=== PATIENT | female | born 1930 ===

== ENCOUNTER 2018-01-05 00:57 | Inpatient (IN) | payer MEDICARE, OTHER ==
--- NOTE | 2018-01-05 01:44 | ED PDOC ---
Arrival/HPI - General Chief Complaint: Trauma Time Seen by Provider: 01/05/18 01:08 Historian: Patient - History of Present Illness Narrative History of Present Illness (Text): 01/05/18 01:40 87 year old female, whose past medical history includes dementia, presents to the Emergency department accompanied by daughter s/p mechanical fall coming out of the bathroom. Patient tripped and fell backwards hitting her head and neck on the floor. Patient also reports she hurt her right shoulder. Patient lives alone, but her daughter lives across the street and called 911. Patient denies any loss of consciousness, fevers, chills, chest pain, shortness of breath, abdominal pain, nausea, vomiting, diarrhea, back pain, neck pain, urinary symptoms, headache, dizziness, or any other complaint. PMD: Dr. Milner Time/Duration: Prior to Arrival Symptom Onset: Sudden Symptom Course: Unchanged Activities at Onset: Light Context: Tripped Past Medical History - Provider Review Nursing Documentation Reviewed: Yes - Infectious Disease Hx of Infectious Diseases: None - Cardiac Hx Hypertension: Yes - Endocrine/Metabolic Hx Diabetes Mellitus Type 2: Yes - Psychiatric Hx Substance Use: No - Anesthesia Hx Anesthesia: No Family/Social History - Physician Review Nursing Documentation Reviewed: Yes Family/Social History: No Known Family HX Smoking Status: Smoker Currrent Status Unknown Hx Alcohol Use: No Hx Substance Use: No Allergies/Home Meds Allergies/Adverse Reactions: Allergies No Known Allergies Allergy (Verified 01/05/18 01:43) Review of Systems - Physician Review All systems were reviewed & negative as marked: Yes - Review of Systems Constitutional: absent: Fevers, Other (Chills) Respiratory: absent: SOB Cardiovascular: absent: Chest Pain Gastrointestinal: absent: Abdominal Pain, Diarrhea, Nausea, Vomiting Genitourinary Female: absent: Dysuria, Frequency, Hematuria Musculoskeletal: Other (Right shoulder pain ). absent: Back Pain, Neck Pain Neurological: absent: Headache, Dizziness, Other (LOC ) Physical Exam Vital Signs Reviewed: Yes Vital Signs Temp Pulse Resp BP Pulse Ox 01/05/18 04:20 68 17 133/80 96 01/05/18 01:09 97.6 F 62 18 176/78 H 100 Temperature: Afebrile Blood Pressure: Hypertensive Pulse: Regular Respiratory Rate: Normal Appearance: Positive for: Well-Appearing, Non-Toxic, Comfortable Pain Distress: None Mental Status: Positive for: Alert and Oriented X 3 - Systems Exam Head: Present: Atraumatic, Normocephalic Pupils: Present: PERRL Extroacular Muscles: Present: EOMI Conjunctiva: Present: Normal Mouth: Present: Moist Mucous Membranes Neck: Present: Normal Range of Motion Respiratory/Chest: Present: Clear to Auscultation, Good Air Exchange. No: Respiratory Distress, Accessory Muscle Use Cardiovascular: Present: Regular Rate and Rhythm, Normal S1, S2. No: Murmurs Abdomen: No: Tenderness, Distention, Peritoneal Signs Back: Present: Normal Inspection Upper Extremity: Present: Other (Limited ROM to the right shoulder). No: Cyanosis, Edema, Tenderness, Deformity Lower Extremity: Present: Normal Inspection. No: Edema Neurological: Present: GCS=15, CN II-XII Intact, Speech Normal Skin: Present: Warm, Dry, Normal Color. No: Rashes Psychiatric: Present: Alert, Oriented x 3, Normal Insight, Normal Concentration Medical Decision Making ED Course and Treatment: 01/05/18 01:49 Impression: 87 year old female presents complaining of right shoulder pain s/p mechanical fall backwards. PE shows limited ROM to the right shoulder. Plan: -- CT Cervical Spine w/o contrast -- CT Head w/o Contrast -- Right Shoulder x-ray -- Elbow Right 3 view x-ray -- Chest X-ray -- Percocet, Zofran -- Immobilizer shoulder routine -- Reassess and disposition Progress Notes: 01/05/18 02:37 On reevaluation, patient's elbow on the right side is now swollen laterally along the olecranon and moves across the radial surface of the forearm 4-5cm. 01/05/18 03:00 Right shoulder x-ray Impression: As read by me, humeral head fracture Elbow Right 3-View x-ray Impression: As read by me, Possible radial head fracture. Sent to [facility] for official read. EXAM: CT Cervical Spine Without Intravenous Contrast Dictated and Authenticated by: Mark Santillan MD 01/05/2018 4:17 AM IMPRESSION: No acute findings EXAM: XR Right Elbow Complete, 3 or More Views Dictated and Authenticated by: Mark Santillan MD 01/05/2018 4:21 AM IMPRESSION: No acute findings. CXR Impression: As read by me, no acute disease. 01/05/18 04:[address] Milner who is aware and agrees with the plan. Accepts patient into her service with Dr. Gallagher for consult. - RAD Interpretation Radiology Orders: 01/05/18 01:44 CERVICAL SPINE W/O CONTRAST [CT] Stat HEAD W/O CONTRAST [CT] Stat SHOULDER RIGHT [RAD] Stat 01/05/18 02:35 ELBOW RIGHT 3 VIEWS ROUTINE [RAD] Stat 01/05/18 03:01 CXR [CHEST ONE VIEW] [RAD] Stat - Medication Orders Current Medication Orders: Discontinued Medications Ondansetron HCl (Zofran Odt) 4 mg PO STAT STA Stop: 01/05/18 02:36 Last Admin: 01/05/18 03:17 Dose: 4 mg Oxycodone/Acetaminophen (Percocet 5/325 Mg Tab) 1 tab PO STAT STA Stop: 01/05/18 02:36 Last Admin: 01/05/18 03:17 Dose: 1 tab MAR Pain Assessment Document 01/05/18 03:17 IT (Rec: 01/05/18 03:18 IT [id number]) Pain Reassessment Is this a pain reassessment? No Sleep Is patient sleeping during reassessment? No Presence of Pain Presence of Pain Yes Pain Scale Used Pain Scale Used Numeric Location Left, Right or Bilateral Right - Scribe Statement The provider has reviewed the documentation as recorded by the Magdalena Lara Provider Scribe Attestation: All medical record entries made by the Anneibe were at my direction and personally dictated by me. I have reviewed the chart and agree that the record accurately reflects my personal performance of the history, physical exam, medical decision making, and the department course for this patient. I have also personally directed, reviewed, and agree with the discharge instructions and disposition. Disposition/Present on Arrival - Present on Arrival History of DVT/PE: No History of Uncontrolled Diabetes: No Urinary Catheter: No History of Decub. Ulcer: No History Surgical Site Infection Following: None - Disposition Referrals: Geri Milner MD [Primary Care Provider] - Follow up with primary Forms: [employer] (German)
[2018-01-05] MEDS ORDERED: Oxycodone/Acetaminophen 5/325 mg Tab PO STA ×2 (02:35→09:21)
--- NOTE | 2018-01-05 08:29 | CT ---
PROCEDURE: CT HEAD WITHOUT CONTRAST. HISTORY: fall COMPARISON: None available. TECHNIQUE: Axial computed tomography images were obtained through the head/brain without intravenous contrast. Radiation dose: Total exam DLP = 845 mGy-cm. This CT exam was performed using one or more of the following dose reduction techniques: Automated exposure control, adjustment of the mA and/or kV according to patient size, and/or use of iterative reconstruction technique. FINDINGS: HEMORRHAGE: No intracranial hemorrhage. BRAIN: No mass effect or edema. Chronic microvascular changes. No acute intracranial findings VENTRICLES: Unremarkable. No hydrocephalus. CALVARIUM: Unremarkable. PARANASAL SINUSES: Unremarkable as visualized. No significant inflammatory changes. MASTOID AIR CELLS: Unremarkable as visualized. No inflammatory changes. OTHER FINDINGS: The report concurs with the preliminary [facility] report IMPRESSION: No acute findings
--- NOTE | 2018-01-05 08:32 | CT ---
PROCEDURE: CT Cervical Spine without contrast HISTORY: fall COMPARISON: None available. TECHNIQUE: Axial computed tomography images were obtained of the cervical spine without the use of intravenous contrast. Coronal and sagittal reformatted images were created and reviewed. Radiation dose: Total exam DLP = 408 mGy-cm. This CT exam was performed using one or more of the following dose reduction techniques: Automated exposure control, adjustment of the mA and/or kV according to patient size, and/or use of iterative reconstruction technique. FINDINGS: VERTEBRAE: No fracture. Normal alignment. No destructive bony lesion. DISCS/SPINAL CANAL/NEURAL FORAMINA: No significant central canal or neural foraminal stenosis. Small central calcified disc protrusion at C3-4. PARASPINAL SOFT TISSUES: Unremarkable. OTHER FINDINGS: The report concurs with the preliminary [facility] report IMPRESSION: Unremarkable CT of the cervical spine.
[2018-01-05 09:21] LABS: HEMOGLOBIN 9.7 g/dL (12.0-16.0); MEAN CORPUSCULAR HEMOGLOBIN 27.8 pg (25.0-35.0); MEAN CORPUSCULAR HGB CONC 33.1 g/dl (31.0-37.0); RBC 3.49 10^6/uL (3.5-6.1); RED CELL DISTRIBUTION WIDTH 13.7 % (11.5-14.5); WHITE BLOOD COUNT 10.4 10^3/ul (4.5-11.0)
--- NOTE | 2018-01-05 09:54 | RAD ---
PROCEDURE: CHEST RADIOGRAPH, 1 VIEW HISTORY: Pre-op COMPARISON: None available. FINDINGS: LUNGS: Clear. PLEURA: No pneumothorax or pleural fluid seen. CARDIOVASCULAR: Normal. OSSEOUS STRUCTURES: No significant abnormalities. VISUALIZED UPPER ABDOMEN: Normal. OTHER FINDINGS: None. IMPRESSION: No active disease.
--- NOTE | 2018-01-05 09:55 | RAD ---
PROCEDURE: Radiographs of the Right Shoulder HISTORY: fall COMPARISON: No prior. FINDINGS: BONES: Nondisplaced fracture right humeral neck. No other fracture identified. Possible comminution. JOINTS: Normal. Glenohumeral and acromioclavicular joints preserved. No osteoarthritis. SOFT TISSUES: Normal. OTHER FINDINGS: None. IMPRESSION: Nondisplaced transverse humeral neck fracture with possible comminution.
--- NOTE | 2018-01-05 09:55 | RAD ---
PROCEDURE: Radiographs of the right elbow. HISTORY: Bruising and Tenderness suddenly appeared COMPARISON: No prior. FINDINGS: BONES: Technically limited examination. No acute fracture. JOINTS: Normal. No osteoarthritis. SOFT TISSUES: Normal. JOINT EFFUSION: None. OTHER FINDINGS: None. IMPRESSION: Unremarkable radiographs of the right elbow.
--- NOTE | 2018-01-05 10:56 | CP.PCM.CON ---
History of Present Illness - History of Present Illness History of Present Illness: Orthopedic consultation Dr. Gallagher 87F complains of right shoulder and elbow pain after fall yesterday. Daughter is at bedside, provides history. RHD. Denies pain in other extremities. Denies numbness/tingling. Denies CP/SOB/dizziness/n/v. Review of Systems - Review of Systems All systems: reviewed and no additional remarkable complaints except - Constitutional Additional comments: no fever chills - Cardiovascular Cardiovascular: As Per HPI - Respiratory Respiratory: As Per HPI - Gastrointestinal Gastrointestinal: As Per HPI - Musculoskeletal Musculoskeletal: As Per HPI - Integumentary Additional comments: swelling and bruising to right arm - Neurological Neurological: As Per HPI - Hematologic/Lymphatic Hematologic: absent: As Per HPI, Easy Bleeding, Easy Bruising, Lymphadenopathy, Other Past Patient History - Infectious Disease Hx of Infectious Diseases: None - Past Medical History & Family History Past Medical History?: Yes Past Family History: Reviewed and not pertinent - Past Social History Smoking Status: Smoker Currrent Status Unknown - CARDIAC Hx Hypertension: Yes - ENDOCRINE/METABOLIC Hx Diabetes Mellitus Type 2: Yes - PSYCHIATRIC Hx Substance Use: No - ANESTHESIA Hx Anesthesia: No Meds Allergies/Adverse Reactions: Allergies Allergy/AdvReac Type Severity Reaction Status Date / Time No Known Allergies Allergy Verified 01/05/18 01:43 - Medications Medications: Current Medications Escitalopram Oxalate (Lexapro) 5 mg PO DAILY [facility] Last Admin: 01/05/18 09:33 Dose: 5 mg Furosemide (Lasix) 20 mg PO DAILY [facility] Last Admin: 01/05/18 09:33 Dose: 20 mg Glipizide (Glucotrol) 5 mg PO ACB [facility] Insulin Human Regular (Humulin R Low) 0 units SC ACHS [facility] PRN Reason: Protocol Losartan Potassium (Cozaar) 50 mg PO DAILY [facility] Last Admin: 01/05/18 09:33 Dose: 50 mg Spironolactone (Aldactone) 25 mg PO DAILY [facility] Last Admin: 01/05/18 09:33 Dose: 25 mg Physical Exam - Constitutional Appears: Well, No Acute Distress - Head Exam Head Exam: ATRAUMATIC - Neck Exam Neck exam: Positive for: Full Rom - Respiratory Exam Respiratory Exam: NORMAL BREATHING PATTERN - Cardiovascular Exam Additional comments: +radial pulse - Extremities Exam Additional comments: no swelling/discoloration/deformity of BLE or LUE, NVID, calves osft NT neg homans - Expanded Upper Extremities Exam Right Shoulder exam: swelling Upper Arm exam: swelling, tenderness Elbow exam: ecchymosis, swelling (appears soft tissue only, no pain in elbow with pron/sup/flex/ext), tenderness Neuro motor exam: finger 2-5 abduction intact, thumb abduction, thumb IP flexion intact, thumb opposition intact, wrist extension intact Neurosensory exam: median nerve intact, radial nerve intact, ulnar nerve intact Vascular exam: radial pulse Results - Vital Signs Recent Vital Signs: Last Vital Signs Temp 98.5 F 01/05/18 06:00 Pulse 64 01/05/18 06:00 Resp 18 01/05/18 06:00 BP 150/67 01/05/18 09:33 Pulse Ox 98 01/05/18 06:00 - Labs Result Diagrams: 01/05/18 08:54 Labs: Laboratory Results - last 24 hr 01/05/18 08:54 WBC 10.4 RBC 3.49 L Hgb 9.7 L Hct 29.3 L MCV 84.0 MCH 27.8 MCHC 33.1 RDW 13.7 Plt Count 338 MPV 9.0 - Impressions Impression: Accession No. : [id number] Patient Name / ID : JETT DEUTSCH / [id number] Exam Date : 01/05/2018 02:57:22 ( Approved ) Study Comment : Sex / Age : F / 87Y Creator : Lito Ryan MD Dictator : Lito Ryan MD Case Hardener : Electrical Supervisor : Lito Ryan MD Approver2 : Report Date : 01/05/2018 09:53:32 My Comment : PROCEDURE: Radiographs of the right elbow. HISTORY: Bruising and Tenderness suddenly appeared COMPARISON: No prior. FINDINGS: BONES: Technically limited examination. No acute fracture. JOINTS: Normal. No osteoarthritis. SOFT TISSUES: Normal. JOINT EFFUSION: None. OTHER FINDINGS: None. IMPRESSION: Unremarkable radiographs of the right elbow. Patient Name / ID : JETT DEUTSCH / [id number] Exam Date : 01/05/2018 02:54:59 ( Approved ) Study Comment : Sex / Age : F / 87Y Creator : Lito Ryan MD Dictator : Lito Ryan MD Case Hardener : Electrical Supervisor : Lito Ryan MD Approver2 : Report Date : 01/05/2018 09:54:10 My Comment : PROCEDURE: Radiographs of the Right Shoulder HISTORY: fall COMPARISON: No prior. FINDINGS: BONES: Nondisplaced fracture right humeral neck. No other fracture identified. Possible comminution. JOINTS: Normal. Glenohumeral and acromioclavicular joints preserved. No osteoarthritis. SOFT TISSUES: Normal. OTHER FINDINGS: None. IMPRESSION: Nondisplaced transverse humeral neck fracture with possible comminution. Assessment & Plan (1) Closed fracture of neck of right humerus Assessment and Plan: non operative shoulder immobilizer at all times ice pain mgmt PT/OT pt lives alone, but family will stay with her around the clock, requests d/c home orthopedically stable, imaging reviewed with Dr. Gallagher, agrees with above, f/u Dr. Gallagher in 2 weeks, call for appt Status: Acute (2) Contusion of right elbow Assessment and Plan: no fracture noted on imaging immobilizer Status: Acute
[2018-01-05 10:58] LABS: ALB/GLOB RATIO 1.2 (1.1-1.8); ALBUMIN 3.8 g/dL (3.0-4.8); CALCIUM 9.1 mg/dL (8.4-10.5)
[2018-01-05] MEDS ORDERED: Sod Polystyrene Sulf 15 gm/60 ml Susp PO ONE (11:03)
[2018-01-05] MEDS ORDERED: Sodium Chloride 0.9% 1,000 ML IV SCH (11:45)
[2018-01-05] MEDS: Lidocaine 5% Patch TD SCH (12:39)
[2018-01-05] MEDS: Insulin Reg-LOW-Coverage SC SCH ×3 (12:42→21:52)
[2018-01-05] MEDS: Sodium Chloride 0.9% 1,000 ML IV SCH (17:00)
[2018-01-05] MEDS: Oxycodone/Acetaminophen 5/325 mg Tab PO PRN (17:45)
--- NOTE | 2018-01-05 23:59 | CP.PCM.CON ---
History of Present Illness - History of Present Illness History of Present Illness: 87 yo F w/ pmh of htn, dm, dementia, presented to ED s/p fall, found to have R humerus closed fracture, nephrology being consulted for acute kidney injury and hyperkalemia; History taken from patient and her daughter; patient denies any dizziness prior to fall; no palpitations; had been eating well; patient says that she simple tripped over some sandals and fell; Patient had just completed 1 week course of bactrim yesterday for L lower leg cellulitis; doesn't offer any urinary complaints; denies itching/rashes; Patient otherwise had been on lasix 40 mg and aldactone 25 mg daily for lower extremity edema; Past Patient History - Infectious Disease Hx of Infectious Diseases: None - Past Medical History & Family History Past Medical History?: Yes Past Family History: Reviewed and not pertinent - Past Social History Smoking Status: Smoker Currrent Status Unknown - CARDIAC Hx Hypertension: Yes - ENDOCRINE/METABOLIC Hx Diabetes Mellitus Type 2: Yes - PSYCHIATRIC Hx Substance Use: No - ANESTHESIA Hx Anesthesia: No Meds Allergies/Adverse Reactions: Allergies Allergy/AdvReac Type Severity Reaction Status Date / Time No Known Allergies Allergy Verified 01/05/18 01:43 - Medications Medications: Current Medications Escitalopram Oxalate (Lexapro) 5 mg PO DAILY [facility] Last Admin: 01/05/18 09:33 Dose: 5 mg Furosemide (Lasix) 20 mg PO DAILY [facility] Last Admin: 01/05/18 09:33 Dose: 20 mg Glipizide (Glucotrol) 5 mg PO ACB [facility] Sodium Chloride (Sodium Chloride 0.9%) 1,000 mls @ 80 mls/hr IV .[id number] [facility] Last Admin: 01/05/18 17:00 Dose: 80 mls/hr Insulin Human Regular (Humulin R Low) 0 units SC ACHS [facility] PRN Reason: Protocol Last Admin: 01/05/18 21:52 Dose: Not Given Lidocaine (Lidoderm) 1 ea TD DAILY [facility] Last Admin: 01/05/18 12:39 Dose: 1 ea Losartan Potassium (Cozaar) 50 mg PO DAILY [facility] Last Admin: 01/05/18 09:33 Dose: 50 mg Oxycodone/Acetaminophen (Percocet 5/325 Mg Tab) 1 tab PO TID PRN PRN Reason: Pain, moderate (4-7) Stop: 01/08/18 18:01 Last Admin: 01/05/18 17:45 Dose: 1 tab Results - Vital Signs Recent Vital Signs: Last Vital Signs Temp 98.4 F 01/05/18 14:00 Pulse 60 01/05/18 14:00 Resp 18 01/05/18 14:00 BP 147/63 01/05/18 14:00 Pulse Ox 98 01/05/18 14:00 - Labs Result Diagrams: 01/06/18 06:45 01/06/18 06:45 Labs: Laboratory Results - last 24 hr 01/05/18 01/05/18 01/05/18 06:51 08:54 09:00 WBC 10.4 RBC 3.49 L Hgb 9.7 L Hct 29.3 L MCV 84.0 MCH 27.8 MCHC 33.1 RDW 13.7 Plt Count 338 MPV 9.0 Sodium 132 Potassium 5.8 H* Chloride 101 Carbon Dioxide 22 Anion Gap 16 BUN 46 H Creatinine 1.9 H Est GFR ( Amer) 30 Est GFR (Non-Af Amer) 25 POC Glucose (mg/dL) 126 H Random Glucose 150 H Calcium 9.1 Total Bilirubin 0.3 AST 44 H ALT 26 Alkaline Phosphatase 60 Total Protein 6.9 Albumin 3.8 Globulin 3.1 Albumin/Globulin Ratio 1.2 01/05/18 01/05/18 01/05/18 11:21 16:19 21:00 WBC RBC Hgb Hct MCV MCH MCHC RDW Plt Count MPV Sodium Potassium Chloride Carbon Dioxide Anion Gap BUN Creatinine Est GFR ( Amer) Est GFR (Non-Af Amer) POC Glucose (mg/dL) 153 H 147 H 109 Random Glucose Calcium Total Bilirubin AST ALT Alkaline Phosphatase Total Protein Albumin Globulin Albumin/Globulin Ratio Assessment & Plan (1) Acute kidney injury Assessment and Plan: Baseline serum creatinine 0.9 in July 2017 (see name under different MR); acute increase in serum creatinine likely pre-renal etiology in the setting of being on multiple diuretics and having bactrim added recently (has diuretic activity); additionally, some of the rise in serum creatinine may be an artifact of being on bactrim (blocks tubular creatinine secretion); -hold all diuretics -hold losartan -increase IVF to NS at 80 cc/hr -avoid any nephrotoxic meds (NSAIDS, phosphate enema) Status: Acute (2) Hyperkalemia Assessment and Plan: Relatively mild; secondary to being on losartan, aldactone and bactrim; -agree with kayexalate -patient already received 1 dose of lasix, will help with potassium excretion along with IVF -low K diet; Status: Acute (3) CHF (congestive heart failure) Assessment and Plan: Has some diastolic dysfunction on previous echo although unclear if this is the cause of recurrent leg swelling; would recommend against using aldactone due to potential for side effects (namely hyperkalemia while already on losartan); holding diuretics for now; Status: Acute (4) HTN (hypertension) Assessment and Plan: BP mildly elevated in the setting of being on IVF; continue to hold meds as above and monitor for now; no need for tight BP control in this very elderly patient; Status: Acute
[2018-01-06] MEDS: Oxycodone/Acetaminophen 5/325 mg Tab PO PRN ×4 (01:04→20:41)
[2018-01-06] MEDS: Sodium Chloride 0.9% 1,000 ML IV SCH ×2 (04:23→15:00)
[2018-01-06 07:07] LABS: HEMOGLOBIN 8.4 g/dL (12.0-16.0); MEAN CELL VOLUME 83.7 fl (80.0-105.0); MEAN CORPUSCULAR HEMOGLOBIN 27.9 pg (25.0-35.0); MEAN CORPUSCULAR HGB CONC 33.3 g/dl (31.0-37.0); MEAN PLATELET VOLUME 9.2 fl (7.0-11.0); RBC 3.01 10^6/uL (3.5-6.1); RED CELL DISTRIBUTION WIDTH 13.8 % (11.5-14.5); WHITE BLOOD COUNT 7.4 10^3/ul (4.5-11.0)
[2018-01-06 07:15] LABS: BLOOD UREA NITROGEN 45 mg/dL (7-21); CALCIUM 8.2 mg/dL (8.4-10.5); GFR AFRICAN-AMERICAN 30; GFR NON-AFRICAN AMERICAN 25; HDL CHOLESTEROL 47 mg/dL (29-60)
[2018-01-06] MEDS: Insulin Reg-LOW-Coverage SC SCH ×4 (07:20→23:33)
[2018-01-06 07:26] LABS: LDL CHOLESTEROL 66 mg/dL (0-129)
[2018-01-06 07:34] LABS: IRON 78 ug/dL (45-180)
[2018-01-06 07:44] LABS: % IRON SATURATION 29 % (20-55); TOTAL IRON BINDING CAPACITY 273 ug/dL (265-497)
[2018-01-06] MEDS: Lidocaine 5% Patch TD SCH (09:38)
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
[2018-01-06 10:38] LABS: HEMOGLOBIN 8.9 g/dL (12.0-16.0)
[2018-01-06 13:51] LABS: FOLATE > 20.0 ng/mL
--- NOTE | 2018-01-07 01:54 | CON ---
DATE: 01/06/2018 REASON FOR CONSULTATION: Preop evaluation, risk stratification for possible surgery of arm, status post fall and fracture of humerus. BRIEF CLINICAL HISTORY: This is an 87-year-old female with past medical history of hypertension, diabetes, hyperlipidemia, advanced dementia, who fell down because slipped, trying to catch her slipper and sustained a right shoulder fracture. Cardiology consult was called for preop evaluation, risk stratification. The patient's daughter is at the bedside. The patient is demented, unable to give any history. Daughter states that the patient had a cardiac catheterization 10 to [address] Dc Chappell. She used to follow Dr. Dc Chappell, was told some mild leakiness of the valve. Last echo was done 2 to 3 years ago. Denies any chest pain. Denies any shortness of breath. Denies any palpitation at home, though the patient does not get out of the house but go to the bathroom to bedroom, no complaints of chest pain. PAST MEDICAL HISTORY: Significant for hypertension, diabetes, hyperlipidemia, history of cardiac catheterization [address] Dc Chappell at [facility] and told there was no blockage. Last echo 4 to 5 years ago, was told some valve leakiness. SOCIAL HISTORY: Denies smoking. Denies any history of alcohol abuse. PAST SURGICAL HISTORY: No significant surgery in the past. CURRENT MEDICATIONS: The patient is taking spironolactone, losartan, Lasix, and alprazolam. REVIEW OF SYSTEMS: As per HPI. PHYSICAL EXAMINATION: VITAL SIGNS: Temperature afebrile, heart rate 63, blood pressure 164/75. HEENT: PERRLA. Extraocular muscles are intact. NECK: Supple. No carotid bruits or thyromegaly. CHEST: Clear to auscultation. HEART: S1 and S2, regular. ABDOMEN: Soft. EXTREMITIES: Clubbing and cyanosis negative. LABORATORY DATA: EKG not done, not available. Blood workup as follows: WBC 7.5, hemoglobin 8.5, hematocrit 25.2, platelet count 285. Chemistries show sodium 130, potassium , chloride 104, bicarbonate is 23, anion gap of 13, BUN 45, creatinine 1.9. IMPRESSION: An 87-year-old female with past medical history of diabetes; hypertension; hyperlipidemia; advanced dementia; admitted with status post fall, sustained fracture of the humerus, right requiring possible ; chronic kidney disease stage 4; diabetes. RECOMMENDATION: The patient is high risk for surgery if it is needed. For risk stratification, we will get echo, lipid profile, TSH, hemoglobin A1c. Low dose beta roman. Avoid nephrotoxic medication. Further recommendation depending upon hospital course. We will follow with you. Thank you, Dr. Milner, for providing us the opportunity in taking care of Cheyenne Ilya. Raza Simpson MD
[2018-01-07 03:04] LABS: URINE BILIRUBIN NEGATIVE (NEGATIVE); URINE BLOOD MODERATE (NEGATIVE); URINE GLUCOSE (UA) NEGATIVE (NEGATIVE); URINE LEUKOCYTE ESTERASE NEGATIVE Leu/uL (NEGATIVE); URINE PROTEIN >=300 mg/dL (<30 mg/dL); URINE UROBILINOGEN 0.2 E.U./dL (<1 E.U./dL)
[2018-01-07 03:06] LABS: URINE APPEARANCE CLEAR (CLEAR); URINE COLOR YELLOW (YELLOW)
[2018-01-07 04:40] LABS: URINE WBC 0 - 2 /hpf (0-6)
--- NOTE | 2018-01-07 06:06 | CP.PCM.PN ---
Subjective - Date & Time of Evaluation Date of Evaluation: 01/06/18 Time of Evaluation: 12:00 - Subjective Subjective: Patient reportedly feeling well; tolerating diet; no nausea/vomiting; Objective - Vital Signs/Intake and Output Vital Signs (last 24 hours): Temp Pulse Resp BP Pulse Ox 98.7 F 62 18 148/68 94 L 01/06/18 22:00 01/06/18 22:00 01/06/18 22:00 01/06/18 22:00 01/06/18 22:00 Intake and Output: 01/06/18 01/07/18 18:59 06:59 Intake Total 780 Balance 780 - Medications Medications: Current Medications Alprazolam (Xanax) 0.125 mg PO HS PRN; Protocol PRN Reason: Anxiety Stop: 01/13/18 18:26 Last Admin: 01/06/18 21:45 Dose: 0.125 mg Amlodipine Besylate (Norvasc) 5 mg PO DAILY [facility] Last Admin: 01/06/18 10:22 Dose: 5 mg Escitalopram Oxalate (Lexapro) 5 mg PO DAILY [facility] Last Admin: 01/06/18 09:50 Dose: 5 mg Furosemide (Lasix) 20 mg PO DAILY [facility] Last Admin: 01/05/18 09:33 Dose: 20 mg Glipizide (Glucotrol) 5 mg PO ACB [facility] Last Admin: 01/06/18 09:49 Dose: Not Given Sodium Chloride (Sodium Chloride 0.9%) 1,000 mls @ 80 mls/hr IV .[id number] [facility] Last Admin: 01/06/18 15:00 Dose: 80 mls/hr Insulin Human Regular (Humulin R Low) 0 units SC ACHS [facility] PRN Reason: Protocol Last Admin: 01/06/18 23:33 Dose: Not Given Lidocaine (Lidoderm) 1 ea TD DAILY [facility] Last Admin: 01/06/18 09:38 Dose: 1 ea Losartan Potassium (Cozaar) 50 mg PO DAILY [facility] Last Admin: 01/05/18 09:33 Dose: 50 mg Metoprolol Tartrate (Lopressor) 25 mg PO BID [facility] Last Admin: 01/06/18 17:12 Dose: 25 mg Oxycodone/Acetaminophen (Percocet 5/325 Mg Tab) 1 tab PO TID PRN PRN Reason: Pain, moderate (4-7) Stop: 01/08/18 18:01 Last Admin: 01/06/18 20:41 Dose: 1 tab - Constitutional Appears: Non-toxic, No Acute Distress - Eye Exam Eye Exam: Normal appearance. absent: Scleral icterus - ENT Exam ENT Exam: Mucous Membranes Moist - Respiratory Exam Respiratory Exam: Clear to Ausculation Bilateral. absent: Respiratory Distress - Cardiovascular Exam Cardiovascular Exam: RRR, +S1, +S2 - GI/Abdominal Exam GI & Abdominal Exam: Soft. absent: Distended, Tenderness - Extremities Exam Additional comments: no leg edema; - Neurological Exam Neurological Exam: Alert, Awake - Psychiatric Exam Psychiatric exam: Normal Mood. absent: Agitated - Skin Skin Exam: Warm. absent: Cyanosis Assessment and Plan (1) Acute kidney injury Assessment & Plan: No improvement since admission despite being on IVF; will continue same for now but obtain additional workup; -renal US -UA, urine lytes -random urine for protein/creatinine; -continue to avoid nephrotoxic agents; continue to hold losartan and diuretics; -continue NS at 80 cc/hr; Status: Acute (2) Hyperkalemia Assessment & Plan: Resolved with medical management; continue low K diet; continue to hold losartan and aldactone; Status: Acute (3) CHF (congestive heart failure) Assessment & Plan: Currently euvolemic on exam; will monitor closely given diastolic dysfunction on previous echo and with patient on IVF; Status: Chronic (4) HTN (hypertension) Assessment & Plan: Started by cardiology on amlodipine and metoprolol with improvement in BP; continue same; Status: Acute
[2018-01-07 06:28] LABS: BASO # 0.04 K/mm3 (0.0-2.0); BASO % 0.4 % (0.0-3.0); EOS # 0.1 (0.0-0.7); EOS % 1.3 % (1.5-5.0); GRAN # 6.61 (1.4-6.5); GRAN % 70.6 % (50.0-68.0); HEMOGLOBIN 8.7 g/dL (12.0-16.0); LYMPH % 21.2 % (22.0-35.0); MEAN CELL VOLUME 84.6 fl (80.0-105.0); MEAN CORPUSCULAR HEMOGLOBIN 27.9 pg (25.0-35.0); MEAN PLATELET VOLUME 9.9 fl (7.0-11.0); MONO # 0.6 (0.1-0.6); MONO % 6.5 % (1.0-6.0); RBC 3.12 10^6/uL (3.5-6.1); RED CELL DISTRIBUTION WIDTH 13.9 % (11.5-14.5); WHITE BLOOD COUNT 9.4 10^3/ul (4.5-11.0)
[2018-01-07] MEDS: Oxycodone/Acetaminophen 5/325 mg Tab PO PRN ×2 (06:59→17:11)
--- NOTE | 2018-01-07 07:08 | US ---
EXAM: US Retroperitoneal Limited, Renal CLINICAL HISTORY: 87 years old, female; Abnormal findings; Abnormal lab test; Abnormal kidney function lab tests; Additional info: Acute renal failure TECHNIQUE: Real-time ultrasound of the retroperitoneum (limited) with image documentation. COMPARISON: No relevant prior studies available. FINDINGS: Right kidney: The right kidney is normal in size, contour, cortical thickness, and echogenicity. No hydronephrosis is identified. No renal lesion is identified. No perinephric fluid collection is seen. The right kidney measures 9.1 cm in length. No stones. Left kidney: The left kidney is normal in size, contour, cortical thickness and echogenicity. No hydronephrosis is identified. No focal renal lesion is identified. No perinephric fluid collection is seen. The left kidney measures 9.2 cm in length. No stones. IMPRESSION: No renal calculus, hydronephrosis or masses are seen.
--- NOTE | 2018-01-07 07:15 | CP.PCM.PN ---
Subjective - Date & Time of Evaluation Date of Evaluation: 01/07/18 Time of Evaluation: 06:25 - Subjective Subjective: Lying in bed, awake, no distress, with right shoulder arm sling Reason for consultation and follow up: Cardiac evaluation and risk stratification for possible shoulder surgery, history of hypertension, diabetes mellitus, hyperlipidemia,CKD stage 4 Seen and examined by me and Dr. Simpson Objective - Vital Signs/Intake and Output Vital Signs (last 24 hours): Temp Pulse Resp BP Pulse Ox 98.7 F 62 18 148/68 94 L 01/06/18 22:00 01/06/18 22:00 01/06/18 22:00 01/06/18 22:00 01/06/18 22:00 Intake and Output: 01/07/18 01/07/18 06:59 18:59 Intake Total 780 Balance 780 - Medications Medications: Current Medications Alprazolam (Xanax) 0.125 mg PO HS PRN; Protocol PRN Reason: Anxiety Stop: 01/13/18 18:26 Last Admin: 01/06/18 21:45 Dose: 0.125 mg Amlodipine Besylate (Norvasc) 5 mg PO DAILY [facility] Last Admin: 01/06/18 10:22 Dose: 5 mg Escitalopram Oxalate (Lexapro) 5 mg PO DAILY [facility] Last Admin: 01/06/18 09:50 Dose: 5 mg Furosemide (Lasix) 20 mg PO DAILY [facility] Last Admin: 01/05/18 09:33 Dose: 20 mg Glipizide (Glucotrol) 5 mg PO ACB [facility] Last Admin: 01/06/18 09:49 Dose: Not Given Sodium Chloride (Sodium Chloride 0.9%) 1,000 mls @ 80 mls/hr IV .[id number] [facility] Last Admin: 01/06/18 15:00 Dose: 80 mls/hr Insulin Human Regular (Humulin R Low) 0 units SC ACHS [facility] PRN Reason: Protocol Last Admin: 01/06/18 23:33 Dose: Not Given Lidocaine (Lidoderm) 1 ea TD DAILY [facility] Last Admin: 01/06/18 09:38 Dose: 1 ea Losartan Potassium (Cozaar) 50 mg PO DAILY [facility] Last Admin: 01/05/18 09:33 Dose: 50 mg Metoprolol Tartrate (Lopressor) 25 mg PO BID [facility] Last Admin: 01/06/18 17:12 Dose: 25 mg Oxycodone/Acetaminophen (Percocet 5/325 Mg Tab) 1 tab PO TID PRN PRN Reason: Pain, moderate (4-7) Stop: 01/08/18 18:01 Last Admin: 01/07/18 06:59 Dose: 1 tab - Labs Labs: 01/07/18 06:10 - Constitutional Appears: No Acute Distress - Head Exam Head Exam: NORMOCEPHALIC - Eye Exam Eye Exam: Normal appearance - ENT Exam ENT Exam: Mucous Membranes Moist - Respiratory Exam Respiratory Exam: NORMAL BREATHING PATTERN - Cardiovascular Exam Cardiovascular Exam: +S1, +S2 - Extremities Exam Additional comments: right shoulder arm sling - Neurological Exam Neurological Exam: Alert, Awake - Psychiatric Exam Psychiatric exam: Normal Affect, Normal Mood - Skin Skin Exam: Intact, Normal Color, Warm Assessment and Plan - Assessment and Plan (Free Text) Assessment: A 87 year old female who was brought to the ER due to fractured right shoulder due to fall. History of history of hypertension, diabetes mellitus, hyperlipidemia,CKD stage 4. history of cardiac catherization 10 years ago and no blockage per daughter. Consult was called to clear patient for possible shoulder surgery. Plan: Cardiac status stable Heart rate and blood pressure stable Complaints of shoulder pain As per daughter, no surgery at this point PRN pain medication given Renal on consult Ortho on consult On Norvasc 5 mg daily,Lasix 20 mg daily,Cozaar 50 mg daily, Lopressor 25 mg BID Continue current treatment Continue current management Will follow up Plan and treatment discussed with Dr. Simpson
[2018-01-07 07:22] LABS: ALB/GLOB RATIO 1.2 (1.1-1.8); ALBUMIN 3.3 g/dL (3.0-4.8); CALCIUM 8.6 mg/dL (8.4-10.5)
[2018-01-07] MEDS: Insulin Reg-LOW-Coverage SC SCH ×4 (08:08→22:43)
[2018-01-07] MEDS: Lidocaine 5% Patch TD SCH (10:13)
[2018-01-07] MEDS: Sodium Chloride 0.9% 1,000 ML IV SCH ×2 (10:16→17:14)
--- NOTE | 2018-01-07 15:55 | PN ---
DATE: 01/07/2018 REASON FOR DICTATION: Addendum to the initial progress note dictated this morning. Echo was requested, but patient had an echo in 07/2017, with different medical record, different account number. Echo dated 08/07/2017, showed normal LV size, normal LV function, normal LV wall thickness. Left ventricular ejection fraction is within normal limits. Calculated ejection fraction is 60%. Normal wall motion. Transmitral flow consistent with a grade 1 diastolic dysfunction. Moderate aortic regurgitation. Moderate mitral regurgitation. Mild tricuspid regurgitation. Mild RV systolic pressure of 47, read by Dr. Correia dated 08/07/2017. So we will cancel the echo and we will clear the patient to go for surgery if needed. Raza Simpson MD
[2018-01-07] MEDS ORDERED: Sodium Chloride 0.9% 1,000 ML IV SCH (18:02)
--- NOTE | 2018-01-07 18:02 | CP.PCM.PN ---
Subjective - Date & Time of Evaluation Date of Evaluation: 01/07/18 Time of Evaluation: 10:00 - Subjective Subjective: Reports feeling well but still with L arm pain; tolerating diet; ambulating to bathroom; no dizziness; Objective - Vital Signs/Intake and Output Vital Signs (last 24 hours): Temp Pulse Resp BP Pulse Ox 98.4 F 60 18 141/72 98 01/07/18 17:28 01/07/18 17:28 01/07/18 17:28 01/07/18 17:28 01/07/18 17:28 Intake and Output: 01/07/18 01/07/18 06:59 18:59 Intake Total 780 760 Balance 780 760 - Medications Medications: Current Medications Alprazolam (Xanax) 0.125 mg PO HS PRN; Protocol PRN Reason: Anxiety Stop: 01/13/18 18:26 Last Admin: 01/06/18 21:45 Dose: 0.125 mg Amlodipine Besylate (Norvasc) 5 mg PO DAILY [facility] Last Admin: 01/07/18 10:14 Dose: 5 mg Escitalopram Oxalate (Lexapro) 5 mg PO DAILY [facility] Last Admin: 01/07/18 10:13 Dose: 5 mg Furosemide (Lasix) 20 mg PO DAILY [facility] Last Admin: 01/05/18 09:33 Dose: 20 mg Glipizide (Glucotrol) 5 mg PO ACB [facility] Last Admin: 01/07/18 08:07 Dose: Not Given Sodium Chloride (Sodium Chloride 0.9%) 1,000 mls @ 40 mls/hr IV .Q24H [facility] Insulin Human Regular (Humulin R Low) 0 units SC ACHS [facility] PRN Reason: Protocol Last Admin: 01/07/18 17:07 Dose: Not Given Lidocaine (Lidoderm) 1 ea TD DAILY [facility] Last Admin: 01/07/18 10:13 Dose: 1 ea Losartan Potassium (Cozaar) 50 mg PO DAILY [facility] Last Admin: 01/05/18 09:33 Dose: 50 mg Metoprolol Tartrate (Lopressor) 25 mg PO BID [facility] Last Admin: 01/07/18 17:12 Dose: 25 mg Oxycodone/Acetaminophen (Percocet 5/325 Mg Tab) 1 tab PO TID PRN PRN Reason: Pain, moderate (4-7) Stop: 01/08/18 18:01 Last Admin: 01/07/18 17:11 Dose: 1 tab - Labs Labs: 01/07/18 06:10 01/07/18 06:10 - Constitutional Appears: Non-toxic, No Acute Distress - Eye Exam Eye Exam: Normal appearance - ENT Exam ENT Exam: Mucous Membranes Moist - Respiratory Exam Respiratory Exam: Clear to Ausculation Bilateral. absent: Respiratory Distress - Cardiovascular Exam Cardiovascular Exam: RRR, +S1, +S2 - GI/Abdominal Exam GI & Abdominal Exam: Soft. absent: Distended, Tenderness - Extremities Exam Additional comments: no leg edema; - Neurological Exam Neurological Exam: Alert, Awake - Psychiatric Exam Psychiatric exam: Normal Mood. absent: Agitated - Skin Skin Exam: Warm. absent: Cyanosis Assessment and Plan (1) Acute kidney injury Assessment & Plan: Improving slowly, not consistent with pre-renal etiology; has signficant proteinuria and hematuria on UA; cannot rule out AIN from bactrim; -obtain random urine for protein, creatinine -checking C3, C4 -checking urine cytology -decreasing IVF to NS at 40 cc/hr Status: Acute (2) Hyperkalemia Assessment & Plan: Resolved; Status: Acute (3) CHF (congestive heart failure) Status: Chronic (4) HTN (hypertension) Assessment & Plan: better controlled, continue current meds; Status: Acute
--- NOTE | 2018-01-08 05:02 | PN ---
DATE: 01/06/2018 SUBJECTIVE: Patient is an 87-year-old female. The patient was seen and examined at bedside on 01/06/2018, looking comfortable. No nausea, vomiting, diarrhea. No hematuria or hematochezia. No fever, no chills. No swelling of the legs. Tolerating diet. PHYSICAL EXAMINATION: VITAL SIGNS: Temperature 98.7, pulse 62, respiratory rate 18, blood pressure 140/68, pulse oximetry 94%. HEENT: Head: Normocephalic, atraumatic. Eyes: PERRLA. Extraocular muscles intact. Conjunctivae clear. Nose: Patent. Mucous membrane moist. NECK: Supple. No carotid bruit. No JVD or thyromegaly. CHEST: Bilaterally symmetrical. HEART: S1 and S2 positive. LUNGS: Clear to auscultation. ABDOMEN: Soft. Bowel sounds positive. No organomegaly. EXTREMITIES: No edema. No cyanosis. NEUROLOGIC: Patient is awake, alert, moving lower extremities. MEDICATIONS: Amlodipine, Lexapro, Lasix, Glucotrol, NS, insulin, Lidoderm, Cozaar, Lopressor, Percocet. LABORATORY DATA: Reviewed by me. ASSESSMENT AND PLAN: Ms. Cheyenne Caraballo is an 87-year-old lady with acute kidney injury, no improvement since admission despite being being getting i/v fluid . We will continue seeing for now, but obtain additional workup by Dr. Rankin. Renal ultrasound, urine lytes, random urine for protein and creatinine and continue to avoid nephrotoxic agents. No more losartan and diuretics. Hyperkalemia, resolved with medical treatment. Congestive heart failure, continue present treatment. Hypertension, stable. Hemoglobin was 8.9, hematocrit 26.8; has almost stable hemoglobin. Glucose 125; it is going up and down. BUN 31, creatinine 1.5, stable kidney function tests. Renal insufficiency. Discussion done with the daughter. Gastrointestinal and deep venous thrombosis prophylaxis. Repeat labs. Upper extremity is in the sling. Physical Therapy . Geri Milner MD MTDMarcela
--- NOTE | 2018-01-08 07:20 | CP.PCM.PN ---
Subjective - Date & Time of Evaluation Date of Evaluation: 01/08/18 Time of Evaluation: 06:25 - Subjective Subjective: Awake, no distress, with right shoulder arm sling,repositioned in bed, daughter at bedside Reason for consultation and follow up: Cardiac evaluation and risk stratification for possible shoulder surgery, history of hypertension, diabetes mellitus, hyperlipidemia,CKD stage 4 Seen and examined by me and Dr. Simpson Objective - Vital Signs/Intake and Output Vital Signs (last 24 hours): Temp Pulse Resp BP Pulse Ox 97.7 F 55 L 18 149/70 95 01/07/18 22:22 01/07/18 22:22 01/07/18 22:22 01/07/18 22:22 01/07/18 22:22 - Medications Medications: Current Medications Alprazolam (Xanax) 0.125 mg PO HS PRN; Protocol PRN Reason: Anxiety Stop: 01/13/18 18:26 Last Admin: 01/07/18 20:56 Dose: 0.125 mg Amlodipine Besylate (Norvasc) 5 mg PO DAILY [facility] Last Admin: 01/07/18 10:14 Dose: 5 mg Escitalopram Oxalate (Lexapro) 5 mg PO DAILY [facility] Last Admin: 01/07/18 10:13 Dose: 5 mg Furosemide (Lasix) 20 mg PO DAILY [facility] Last Admin: 01/05/18 09:33 Dose: 20 mg Glipizide (Glucotrol) 5 mg PO ACB [facility] Last Admin: 01/07/18 08:07 Dose: Not Given Sodium Chloride (Sodium Chloride 0.9%) 1,000 mls @ 40 mls/hr IV .Q24H [facility] Last Admin: 01/07/18 19:05 Dose: 40 mls/hr Insulin Human Regular (Humulin R Low) 0 units SC ACHS [facility] PRN Reason: Protocol Last Admin: 01/07/18 22:43 Dose: Not Given Lidocaine (Lidoderm) 1 ea TD DAILY [facility] Last Admin: 01/07/18 10:13 Dose: 1 ea Losartan Potassium (Cozaar) 50 mg PO DAILY [facility] Last Admin: 01/05/18 09:33 Dose: 50 mg Metoprolol Tartrate (Lopressor) 25 mg PO BID [facility] Last Admin: 01/07/18 17:12 Dose: 25 mg Oxycodone/Acetaminophen (Percocet 5/325 Mg Tab) 1 tab PO TID PRN PRN Reason: Pain, moderate (4-7) Stop: 01/08/18 18:01 Last Admin: 01/07/18 17:11 Dose: 1 tab - Labs Labs: 01/07/18 06:10 01/07/18 06:10 - Constitutional Appears: No Acute Distress - Eye Exam Eye Exam: Normal appearance - ENT Exam ENT Exam: Mucous Membranes Moist - Respiratory Exam Respiratory Exam: Clear to Ausculation Bilateral, NORMAL BREATHING PATTERN - Cardiovascular Exam Cardiovascular Exam: +S1, +S2 - GI/Abdominal Exam GI & Abdominal Exam: Soft, Normal Bowel Sounds - Extremities Exam Extremities Exam: Normal Capillary Refill Additional comments: right arm immobilizer/sling - Neurological Exam Neurological Exam: Alert, Awake, Oriented x3 - Psychiatric Exam Psychiatric exam: Normal Affect, Normal Mood - Skin Skin Exam: Intact, Normal Color, Warm Assessment and Plan - Assessment and Plan (Free Text) Assessment: A 87 year old female who was brought to the ER due to fractured right shoulder due to fall. History of history of hypertension, diabetes mellitus, hyperlipidemia,CKD stage 4. history of cardiac catherization 10 years ago and no blockage per daughter. Consult was called to clear patient for possible shoulder surgery. Echo done last 08/07/2017-LVEF 60%, moderate AR/MR mild TR. Moderate risk and cleared for surgery if warranted. Plan: As per ortho, no shoulder surgery For discharge to Rehab, social service working on placement Cardiac status stable Heart rate and blood pressure stable Complaints of shoulder pain PRN pain medication given On Norvasc 5 mg daily,Lasix 20 mg daily,Cozaar 50 mg daily, Lopressor 25 mg BID Continue current treatment Continue current management Will follow up Plan and treatment discussed with Dr. Simpson
--- NOTE | 2018-01-08 08:26 | PN ---
DATE: 01/07/2018 SUBJECTIVE: The patient is an 87-year-old female. The patient is seen and examined on the bedside. Daughter was sitting on the bedside also. Do not look like in any distress with right shoulder arm sling. No fever. No chills. No headache. No dizziness. No chest pain. No palpitation. Coughing is minimal. PHYSICAL EXAMINATION: VITAL SIGNS: Temperature 98.7, pulse 62, respiratory rate 18, blood pressure 148/68, pulse oximetry 94. HEENT: Head normocephalic, atraumatic. Eyes PERRLA. Extraocular muscles intact. Conjunctivae clear. Nose patent. Mucous membrane moist. NECK: Supple. No carotid bruit. No JVD or thyromegaly. CHEST: Bilaterally symmetrical. HEART: S1 and S2 positive. LUNGS: Clear to auscultation. ABDOMEN: Soft. Bowel sounds positive. No organomegaly. EXTREMITIES: No edema. No cyanosis. Right upper extremity is in the sling. NEUROLOGICAL: The patient is awake and alert. Moving all 4 extremities. No focal deficits. LABORATORY DATA: White blood cells 9.4, hemoglobin 8.7, hematocrit 26.4, platelets 308. MEDICATIONS: Xanax, amlodipine, Lexapro, Lasix, Glucotrol, NS, insulin, lidocaine, Cozaar, Lopressor, Percocet. ASSESSMENT AND PLAN: Ms. Cheyenne Caraballo, 87-year-old lady with anemia, came to the emergency room due to fracture of right shoulder due to fall, history of hypertension, diabetes mellitus, hypercholesterolemia, chronic kidney disease stage 4, history of cardiac catheterization 10 years ago. No blockage as per daughter 10 years ago. Still having pain in the shoulder. According to Orthopedic, no surgery, just immobilization. Cardiac status stable as per assistant center manager. Renal insufficiency, Dr. Abelardo Lopez on the case. Orthopedic is on the case. Continue Norvasc. Add Lopressor. History of swelling of the legs. Plan was to take the patient to Transitional Care Unit, but as per the patient, the patient is living alone, is not able to ambrocio her activities of daily living, 7 days will be not enough. May be we will be looking for subacute rehabilitation. Daughter expressed wishes about to send her mother to [facility]. I spoke to social workers ,they are working on that. History of hyperkalemia ,congestive heart failure, hypertension. We will continue present treatment, repeat labs. We will follow up. Geri Milner MD [facility]
[2018-01-08 09:16] LABS: BASO # 0.03 K/mm3 (0.0-2.0); BASO % 0.4 % (0.0-3.0); EOS # 0.2 (0.0-0.7); EOS % 2.1 % (1.5-5.0); GRAN # 5.53 (1.4-6.5); GRAN % 67.7 % (50.0-68.0); HEMOGLOBIN 8.7 g/dL (12.0-16.0); LYMPH # 1.9 (1.2-3.4); LYMPH % 23.7 % (22.0-35.0); MEAN CELL VOLUME 84.2 fl (80.0-105.0); MEAN CORPUSCULAR HEMOGLOBIN 28.1 pg (25.0-35.0); MEAN CORPUSCULAR HGB CONC 33.3 g/dl (31.0-37.0); MEAN PLATELET VOLUME 9.8 fl (7.0-11.0); MONO # 0.5 (0.1-0.6); MONO % 6.1 % (1.0-6.0); RBC 3.1 10^6/uL (3.5-6.1); RED CELL DISTRIBUTION WIDTH 13.5 % (11.5-14.5); WHITE BLOOD COUNT 8.2 10^3/ul (4.5-11.0)
[2018-01-08 09:53] LABS: ALB/GLOB RATIO 1.1 (1.1-1.8); ALBUMIN 3.2 g/dL (3.0-4.8); CALCIUM 8.6 mg/dL (8.4-10.5)
[2018-01-08] MEDS: Oxycodone/Acetaminophen 5/325 mg Tab PO PRN (10:36)
[2018-01-08] MEDS: Lidocaine 5% Patch TD SCH (10:37)
[2018-01-08] MEDS: Insulin Reg-LOW-Coverage SC SCH ×4 (10:38→22:20)
[2018-01-08 13:35] LABS: COMPLEMENT C4 41.6 mg/dL (14.0-44.0)
--- NOTE | 2018-01-08 15:54 | CP.PCM.PN ---
Subjective - Date & Time of Evaluation Date of Evaluation: 01/08/18 Time of Evaluation: 15:50 - Subjective Subjective: Nephrology Consultation Note covering for Dr Rankin Assessment: Stable Acute Kidney Injury (N17.9) likely due to meds (arb + aldactone + bactrim): improving Hypertensive Chronic Kidney Disease (I12.9) Likely Chronic Kidney Disease (N18.9) ? Stage with 3+ proteinuria (R80.9) ? etiology Anemia hx of CHF, fall and Rt humeral fracture Plan No acute need for renal replacement therapy at this time. BELEM improving Hypertension control with meds as ordered. Patient was not on ACEI/ARB due to recent BELEM. resume losartan 50 mg/day Monitor Input/Output, daily weights and renal function with basic metabolic panel started iron supplements and MVI d/c IVF Check urine analysis, spot protein/creatinine and albumin/creatinine ratio will need further work up for proteinuria. Dose meds/antibiotics for reduced GFR. Avoid fleets enema/magnesium based laxatives. Avoid nephrotoxins/NSAIDs/ iodinated contrast (unless needed emergently) Glycemic control Further work up for as per primary team Thanks for allowing me to participate in care of your patient. Dr Rankin Will follow patient with you from tomorrow. Please call if any Qs Dr Travis Morelos Office: [phone] Subjective: Noted events overnight. Patients feels okay. Denies chest pain, palpitation, shortness of breath, leg swelling. All other negative Physical Examination: General Appearance: Comfortable, in no acute respiratory distress, co-operative . Vitals reviewed and noted as below Head; Atraumatic, normocephalic ENT: no ulcers no thrush. Tongue is midline. Oropharynx: no rash or ulcers. EYES: Pupils are equal, round and reactive to light accommodation. Eye muscles and extraocular movement intact. Sclera is anicteric. Neck; supple no lymphadenopathy, no thyromegaly or bruit Lungs: Normal respiratory rate/effort. Breath sounds bilateral equal and clear Heart: Normal rate. s1s2 normal. No rub or gallop. Extremities: 1+ edema. No varicose veins Neurological: Patient is alert, awake and oriented to person, place and time. No focal deficit. Strength bilateral appropriate and equal Skin: Warm and dry. Normal turgor. No rash. Palpitation: Normal elasticity for age Abdomen: Abdomen is soft. Bowel sounds +. There is no abdominal tenderness, no guarding/rigidity no organomegaly Psych: normal insight and normal affect/mood MSK: no joint tenderness or swelling. Digits and nails normal, no deformity : kidney or bladder not palpable Labs/imaging reviewed. Past medical history, past surgical history, family history, social history, allergy reviewed and noted as below Family hx: no hx of CKD. Rest non-contributory Objective - Vital Signs/Intake and Output Vital Signs (last 24 hours): Temp Pulse Resp BP Pulse Ox 98 F 59 L 20 164/72 H 100 01/08/18 06:00 01/08/18 06:00 01/08/18 06:00 01/08/18 06:00 01/08/18 06:00 Intake and Output: 01/08/18 01/08/18 06:59 18:59 Intake Total 300 Balance 300 - Medications Medications: Current Medications Alprazolam (Xanax) 0.125 mg PO HS PRN; Protocol PRN Reason: Anxiety Stop: 01/13/18 18:26 Last Admin: 01/07/18 20:56 Dose: 0.125 mg Amlodipine Besylate (Norvasc) 5 mg PO DAILY [facility] Last Admin: 01/08/18 10:37 Dose: 5 mg Escitalopram Oxalate (Lexapro) 5 mg PO DAILY [facility] Last Admin: 01/08/18 10:37 Dose: 5 mg Ferrous Gluconate (Fergon) 324 mg PO TID [facility] Furosemide (Lasix) 20 mg PO DAILY [facility] Last Admin: 01/05/18 09:33 Dose: 20 mg Glipizide (Glucotrol) 5 mg PO ACB [facility] Last Admin: 01/08/18 10:37 Dose: 5 mg Insulin Human Regular (Humulin R Low) 0 units SC ACHS [facility] PRN Reason: Protocol Last Admin: 01/08/18 12:00 Dose: Not Given Lidocaine (Lidoderm) 1 ea TD DAILY [facility] Last Admin: 01/08/18 10:37 Dose: 1 ea Losartan Potassium (Cozaar) 50 mg PO DAILY [facility] Last Admin: 01/05/18 09:33 Dose: 50 mg Losartan Potassium (Cozaar) 50 mg PO DAILY [facility] Metoprolol Tartrate (Lopressor) 25 mg PO BID [facility] Last Admin: 01/08/18 10:37 Dose: 25 mg Oxycodone/Acetaminophen (Percocet 5/325 Mg Tab) 1 tab PO TID PRN PRN Reason: Pain, moderate (4-7) Stop: 01/08/18 18:01 Last Admin: 01/08/18 10:36 Dose: 1 tab Vitamin B Complex/Vit C/Folic Acid (Nephro-Raul) 1 tab PO 0800 [facility] - Labs Labs: 01/08/18 07:19 01/08/18 07:19
[2018-01-08] MEDS ORDERED: Oxycodone/Acetaminophen 5/325 mg Tab PO ONE (21:14)
--- NOTE | 2018-01-09 03:32 | PN ---
DATE: 01/08/2018 SUBJECTIVE: Patient is an 87-year-old female. The patient was seen and examined at bedside. Daughter was sitting on the bedside also. The patient is a little bit sleepy. Has left upper extremity in the sling. No fever, no chill. No nausea, vomiting, diarrhea. No hematuria or hematochezia. No headache. No dizziness. PHYSICAL EXAMINATION: VITAL SIGNS: Temperature 97.7, pulse 55, respiratory rate 18, blood pressure 149/70, pulse oximetry 95%. HEENT: Head: Normocephalic, atraumatic. Eyes: PERRLA. Extraocular muscles intact. Conjunctivae clear. Nose: Patent. Mucous membrane moist. NECK: Supple. No carotid bruit. No JVD or thyromegaly. CHEST: Bilaterally symmetrical. HEART: S1 and S2 positive. LUNGS: Clear to auscultation. ABDOMEN: Soft. Bowel sounds positive. No organomegaly. NEUROLOGIC: The patient is sleepy, arousable. Follows simple command. EXTREMITIES: Lower extremity, no edema. No cyanosis. MEDICATIONS: Xanax, amlodipine, Lexapro, Lasix, Glucotrol, NS, insulin, Lidoderm, Cozaar, Lopressor, Percocet. LABORATORY DATA: White blood cells 9.4, hemoglobin 8.7, hematocrit 26.4, platelets 308. Sodium 133, potassium 4.8, BUN 39, creatinine 1.5, glucose 120. ASSESSMENT AND PLAN: Ms. Sera Caraballo is an 87-year-old lady with anemia, renal insufficiency, hyperglycemia, had fracture of the right shoulder due to fall, history of hypertension, diabetes mellitus, hypercholesterolemia, chronic kidney disease, stage IV, history of cardiac catheterization 10 years ago and no blockage as per daughter. Cardiology is on the case. Echo done on 08/07/2017 shows left ventricular ejection fraction 50%, but family decided no shoulder surgery, medical treatment. Waiting for rehab bed for discharge to rehab for physical therapy. Cardiac status stable; some times complaining about shoulder pain, under control. Continue Norvasc, Lasix, Cozaar and Lopressor. Seen by Dr. Travis Morelos covering Dr. Shoaib Rankin for Nephrology. Discussion done with the patient's daughter for length of time. All questions answered. We will follow up. Geri Milner MD [facility] # [id number] VAHID
--- NOTE | 2018-01-09 04:45 | CP.PCM.PN ---
Subjective - Date & Time of Evaluation Date of Evaluation: 01/09/18 Time of Evaluation: 04:43 - Subjective Subjective: S: Complained of pain in right shoulder. Patient was seen at bedside. Has no other complaints. Medical record was reviewed. O: Last Vital Signs 3 Temp 98.2 F 01/08/18 22:00 Pulse 51 L 01/08/18 22:00 Resp 18 01/08/18 22:00 BP 139/67 01/08/18 22:00 Pulse Ox 98 01/08/18 22:00 Awake, alert, not in distress. LUNGS: Normal breathing pattern. Right arm in sling. No neurovascular deficit. A:Right shoulder pain. P:Percocet 5/325 I PO now. Objective - Vital Signs/Intake and Output Vital Signs (last 24 hours): Temp Pulse Resp BP Pulse Ox 98.2 F 51 L 18 139/67 98 01/08/18 22:00 01/08/18 22:00 01/08/18 22:00 01/08/18 22:00 01/08/18 22:00 Intake and Output: 01/08/18 01/09/18 18:59 06:59 Intake Total 300 540 Balance 300 540 - Medications Medications: Current Medications Alprazolam (Xanax) 0.125 mg PO HS PRN; Protocol PRN Reason: Anxiety Stop: 01/13/18 18:26 Last Admin: 01/07/18 20:56 Dose: 0.125 mg Amlodipine Besylate (Norvasc) 5 mg PO DAILY [facility] Last Admin: 01/08/18 10:37 Dose: 5 mg Escitalopram Oxalate (Lexapro) 5 mg PO DAILY [facility] Last Admin: 01/08/18 10:37 Dose: 5 mg Ferrous Gluconate (Fergon) 324 mg PO TID [facility] Last Admin: 01/08/18 17:09 Dose: 324 mg Furosemide (Lasix) 20 mg PO DAILY [facility] Last Admin: 01/05/18 09:33 Dose: 20 mg Glipizide (Glucotrol) 5 mg PO ACB [facility] Last Admin: 01/08/18 10:37 Dose: 5 mg Insulin Human Regular (Humulin R Low) 0 units SC ACHS [facility] PRN Reason: Protocol Last Admin: 01/08/18 22:20 Dose: Not Given Lidocaine (Lidoderm) 1 ea TD DAILY [facility] Last Admin: 01/08/18 10:37 Dose: 1 ea Losartan Potassium (Cozaar) 50 mg PO DAILY [facility] Last Admin: 01/05/18 09:33 Dose: 50 mg Losartan Potassium (Cozaar) 50 mg PO DAILY [facility] Metoprolol Tartrate (Lopressor) 25 mg PO BID [facility] Last Admin: 01/08/18 17:09 Dose: 25 mg Vitamin B Complex/Vit C/Folic Acid (Nephro-Raul) 1 tab PO 0800 [facility] - Labs Labs: 01/08/18 07:19 01/08/18 07:19
[2018-01-09 07:46] LABS: HEMOGLOBIN 8.5 g/dL (12.0-16.0); MEAN CELL VOLUME 83.7 fl (80.0-105.0); MEAN CORPUSCULAR HEMOGLOBIN 27.7 pg (25.0-35.0); MEAN CORPUSCULAR HGB CONC 33.1 g/dl (31.0-37.0); RBC 3.07 10^6/uL (3.5-6.1); RED CELL DISTRIBUTION WIDTH 13.3 % (11.5-14.5); WHITE BLOOD COUNT 7.6 10^3/ul (4.5-11.0)
[2018-01-09 07:59] VITALS: PULSE 61; RESP 20; TEMP 97.9; O2SAT 97
[2018-01-09 08:00] LABS: CALCIUM 8.7 mg/dL (8.4-10.5)
[2018-01-09] MEDS ORDERED: Multivitamin Vitamin B Complex (Nephro-Vite) Tab PO SCH (08:00)
[2018-01-09] MEDS: Insulin Reg-LOW-Coverage SC SCH ×2 (08:12→11:41)
[2018-01-09] MEDS: Lidocaine 5% Patch TD SCH (09:31)
--- NOTE | 2018-01-09 10:32 | CP.PCM.PN ---
Subjective - Date & Time of Evaluation Date of Evaluation: 01/09/18 Time of Evaluation: 10:29 - Subjective Subjective: Patient reports feeling well; no sob, nausea/vomiting; ambulating; Objective - Vital Signs/Intake and Output Vital Signs (last 24 hours): Temp Pulse Resp BP Pulse Ox 97.9 F 61 20 169/80 H 97 01/09/18 07:58 01/09/18 07:58 01/09/18 07:58 01/09/18 09:23 01/09/18 07:58 Intake and Output: 01/09/18 01/09/18 06:59 18:59 Intake Total 780 Balance 780 - Medications Medications: Current Medications Alprazolam (Xanax) 0.125 mg PO HS PRN; Protocol PRN Reason: Anxiety Stop: 01/13/18 18:26 Last Admin: 01/07/18 20:56 Dose: 0.125 mg Amlodipine Besylate (Norvasc) 5 mg PO DAILY [facility] Last Admin: 01/09/18 09:23 Dose: 5 mg Escitalopram Oxalate (Lexapro) 5 mg PO DAILY [facility] Last Admin: 01/09/18 09:22 Dose: 5 mg Ferrous Gluconate (Fergon) 324 mg PO TID [facility] Last Admin: 01/09/18 09:27 Dose: 324 mg Furosemide (Lasix) 20 mg PO DAILY [facility] Last Admin: 01/05/18 09:33 Dose: 20 mg Glipizide (Glucotrol) 5 mg PO ACB [facility] Last Admin: 01/09/18 09:22 Dose: 5 mg Insulin Human Regular (Humulin R Low) 0 units SC ACHS [facility] PRN Reason: Protocol Last Admin: 01/09/18 08:12 Dose: Not Given Lidocaine (Lidoderm) 1 ea TD DAILY [facility] Last Admin: 01/09/18 09:31 Dose: 1 ea Losartan Potassium (Cozaar) 50 mg PO DAILY [facility] Metoprolol Tartrate (Lopressor) 25 mg PO BID [facility] Last Admin: 01/09/18 09:23 Dose: 25 mg Vitamin B Complex/Vit C/Folic Acid (Nephro-Raul) 1 tab PO 0800 [facility] Last Admin: 01/09/18 09:22 Dose: 1 tab - Labs Labs: 01/09/18 06:30 01/09/18 06:30 - Constitutional Appears: Non-toxic, No Acute Distress - Eye Exam Eye Exam: Normal appearance - ENT Exam ENT Exam: Mucous Membranes Moist - Respiratory Exam Respiratory Exam: Clear to Ausculation Bilateral. absent: Respiratory Distress - Cardiovascular Exam Cardiovascular Exam: RRR, +S1, +S2 - GI/Abdominal Exam GI & Abdominal Exam: absent: Distended, Tenderness - Exam Exam: absent: Bladder Distension - Extremities Exam Additional comments: mild lower leg edema; - Neurological Exam Neurological Exam: Alert, Awake - Psychiatric Exam Psychiatric exam: Normal Mood. absent: Agitated - Skin Skin Exam: Warm. absent: Cyanosis Assessment and Plan (1) Acute kidney injury Assessment & Plan: Renal function improved, not quite at baseline; exact etiology of BELEM not clear but cannot rule out AIN; recommend to avoid bactrim; avoid over-diuresis simply for mild leg swelling; -recommend outpatient nephrology f/u; Status: Resolved (2) Hyperkalemia Assessment & Plan: Patient to be restarted on losartan; should avoid other meds that can contribute to hyperkalemia (NSAIDS, aldactone, bactrim); Status: Resolved (3) CHF (congestive heart failure) Assessment & Plan: Diastolic dysfunction per previous echo; recommend careful diuretic use as needed; Status: Chronic (4) HTN (hypertension) Assessment & Plan: BP elevated despite being on amlodipine and metoprolol; restarting losartan 50 mg daily and lasix 20 mg every other day; Status: Acute
[2018-01-09 11:26] LABS: URINE BILIRUBIN NEGATIVE (NEGATIVE); URINE BLOOD MODERATE (NEGATIVE); URINE GLUCOSE (UA) 100 mg/dL (NEGATIVE); URINE LEUKOCYTE ESTERASE NEGATIVE Leu/uL (NEGATIVE); URINE PROTEIN >=300 mg/dL (<30 mg/dL); URINE UROBILINOGEN 0.2 E.U./dL (<1 E.U./dL)
[2018-01-09 11:27] LABS: URINE APPEARANCE CLEAR (CLEAR); URINE COLOR YELLOW (YELLOW)
[2018-01-09 11:31] LABS: URINE BACTERIA TRACE (NEG); URINE EPITHELIAL CELLS 0 - 2 /hpf (0-5)
[2018-01-09] MEDS ORDERED: Oxycodone/Acetaminophen 5/325 mg Tab PO PRN (12:20)
[2018-01-09 12:28] VITALS: BP 156/78
== END 2018-01-09 15:00 | DRG 563 ==
LOC: ED 00:57 → ERH 04:25 → 5RNO 06:14 → OBSVTOIN 01-06 11:36
PROVIDERS: ADMIT Internal Medicine; ATTEND Internal Medicine
DX: S42.214A Unspecified nondisplaced fracture of surgical neck of right humerus, initial encounter for closed fracture (principal); I13.0 Hypertensive heart and chronic kidney disease with heart failure and stage 1 through stage 4 chronic kidney disease, or unspecified chronic kidney disease; N17.9 Acute kidney failure, unspecified; N18.4 Chronic kidney disease, stage 4 (severe); D64.9 Anemia, unspecified; E11.22 Type 2 diabetes mellitus with diabetic chronic kidney disease; E11.65 Type 2 diabetes mellitus with hyperglycemia; E78.00 Pure hypercholesterolemia, unspecified; E78.5 Hyperlipidemia, unspecified; E87.5 Hyperkalemia; F03.90 Unspecified dementia, unspecified severity, without behavioral disturbance, psychotic disturbance, mood disturbance, and anxiety; I08.3 Combined rheumatic disorders of mitral, aortic and tricuspid valves; I50.9 Heart failure, unspecified; S50.01XA Contusion of right elbow, initial encounter; W01.0XXA Fall on same level from slipping, tripping and stumbling without subsequent striking against object, initial encounter